=== PATIENT | male | born 1965 | race Hispanic/Latino ===

== ENCOUNTER 2018-05-08 06:44 | Emergency (ER) | payer SELFPAY ==
[~2018-05-08 06:44] MED LIST: ALBU90AE IH; AMLO5TAB2 PO; DILT360C30 PO; ESOM20CA34 PO; LISI40TA4 PO; MONT10TA21 PO; POTASSIUM PO; SERT20OR PO
[2018-05-08] MEDS ORDERED: HYDRALAZINE HCL 25 MG TABLET ONE (06:56)
== END 2018-05-08 07:44 | disposition home or self-care (01) ==
LOC: EDH 06:44
DX: I10 Essential (primary) hypertension (principal); J45.909 Unspecified asthma, uncomplicated; I25.10 Atherosclerotic heart disease of native coronary artery without angina pectoris; Z88.0 Allergy status to penicillin
CPT/HCPCS: 93005

== ENCOUNTER 2020-07-20 20:53 | Emergency (ER) | payer MEDICAID ==
[~2020-07-20 20:53] MED LIST changes: -AMLO5TAB2 PO; +AMLO5TAB9 PO; -DILT360C30 PO; +DILT360C38 PO
[2020-07-20] MEDS ORDERED: LABETALOL 20 MG/4 ML DISP.SYRIN IV ONE (21:30)
[2020-07-20 21:34] LABS: BASOPHILS % (AUTO) 0.4 % (0.0-5.0); EOSINOPHILS % (AUTO) 0.2 % (0.0-8.0); HEMATOCRIT 43.2 % (42-54); LYMPHOCYTES % (AUTO) 19.8 % (21.0-51.0); MEAN CORPUSCULAR HEMOGLOBIN 29.9 pg (27.0-33.0); MEAN CORPUSCULAR HGB CONC 33.8 g/dL (32.0-36.0); MEAN CORPUSCULAR VOLUME 88.5 fL (79-99); MONOCYTES % (AUTO) 5.7 % (3.0-13.0); NEUTROPHILS % (AUTO) 73.5 % (40.0-77.0); PLATELET COUNT (AUTO) 437 K/uL (130-400); RED BLOOD CELL COUNT(AUTO) 4.88 MIL/uL (4.50-6.20); RED CELL DISTRIBUTION WIDTH 12.6 % (11.0-15.5); WHITE BLOOD COUNT (AUTO) 16.6 K/uL (4.8-10.8)
[2020-07-20 21:42] LABS: AMPHET/METH SCREEN,URINE NEGATIVE (NEGATIVE); BARBITURATE SCREEN, URINE NEGATIVE (NEGATIVE); BENZODIAZEPINES SCREEN,URINE NEGATIVE (NEGATIVE); CANNABINOID SCREEN,URINE NEGATIVE (NEGATIVE); COCAINE SCREEN,URINE NEGATIVE (NEGATIVE); OPIATE SCREEN,URINE NEGATIVE (NEGATIVE); PHENCYCLIDINE SCREEN,URINE NEGATIVE (NEGATIVE)
[2020-07-20 21:44] LABS: CREATININE 1.1 mg/dL (0.5-1.5); POTASSIUM 3.3 mmol/L (3.5-5.1)
[2020-07-20 21:46] LABS: PARTIAL THROMBOPLASTIN TIME 27.8 SEC (26.3-35.5); PROTHROMBIN TIME 10.8 SEC (9.6-11.6)
[2020-07-20 21:48] LABS: ALBUMIN 3.9 g/dL (3.5-5.0); BILIRUBIN,TOTAL 0.6 mg/dL (0.2-1.0); TOTAL PROTEIN, SERUM 7.8 g/dL (6.0-8.3)
[2020-07-20 22:31] LABS: APPEARANCE,URINE Clear (CLEAR); BILIRUBIN,URINE Negative (NEGATIVE); COLOR,URINE Yellow (YELLOW); GLUCOSE, URINE (UA) TRACE mg/dL (NEGATIVE); KETONES,URINE Negative (NEGATIVE); LEUKOCYTE ESTERASE ,URINE Negative (NEGATIVE); NITRATE,URINE Negative (NEGATIVE); OCCULT BLOOD,URINE Negative (NEGATIVE); PH,URINE 8.5 (5.0-8.0); PROTEIN,URINE Negative (NEGATIVE)
[2020-07-20] MEDS ORDERED: POTASSIUM CHLORIDE 20 MEQ ERTAB PO ONE (23:37)
== END 2020-07-21 00:07 | disposition home or self-care (01) ==
LOC: EDH 20:53
DX: I10 Essential (primary) hypertension (principal); D72.829 Elevated white blood cell count, unspecified; E87.6 Hypokalemia; I25.10 Atherosclerotic heart disease of native coronary artery without angina pectoris; J45.909 Unspecified asthma, uncomplicated; Z88.0 Allergy status to penicillin
CPT/HCPCS: 36415; 71046; 80053; 80305; 81003; 84484; 85025; 85610; 85730; 93005; 96374

== ENCOUNTER 2022-05-11 23:01 | Emergency (ER) | payer MEDICAID ==
[~2022-05-11] VITALS: Ht 167.6 cm; Wt 103.0 kg
[~2022-05-11 23:01] MED LIST changes: +AMLO-257 PO; -AMLO5TAB9 PO; -LISI40TA4 PO; +LISI40TA9 PO
[2022-05-11] MEDS ORDERED: ACYC-138 PO (23:30)
[2022-05-11] MEDS ORDERED: ACETAMINOPHEN WITH CODEINE 1 TAB TAB PO ONE (23:30)
[2022-05-11] MEDS ORDERED: ACYCLOVIR 800 MG TABLET PO ONE (23:30)
[2022-05-11] MEDS ORDERED: IBUP-2070 PO (23:30)
[2022-05-11] MEDS ORDERED: IBUPROFEN 600 MG TABLET PO ONE (23:30)
[2022-05-11] MEDS ORDERED: ACET-2079 PO (23:30)
[2022-05-11] MEDS ORDERED: HYDROCODONE/ACETAMINOPHEN 10/325 MG TAB PO ONE (23:30)
[2022-05-11] MEDS ORDERED: LIDOCAINE/PRILOCAINE CREAM 5GM TUBE TP SCH (23:30)
[2022-05-11] MEDS ORDERED: ACYCLOVIR 200 MG CAPSULE ONE (23:37)
[2022-05-11 23:43] VITALS: BP 142/84
== END 2022-05-11 23:47 | disposition home or self-care (01) ==
LOC: EDH 23:01
DX: B02.9 Zoster without complications (principal); I10 Essential (primary) hypertension; E11.9 Type 2 diabetes mellitus without complications; J45.909 Unspecified asthma, uncomplicated; Z79.899 Other long term (current) drug therapy

== ENCOUNTER 2025-07-14 21:27 | Emergency (ER) | payer BC, MEDICAID ==
[~2025-07-14] VITALS: Ht 167.6 cm; Wt 98.9 kg
[~2025-07-14 21:27] MED LIST changes: +ACET-2079 PO; +ACYC-138 PO; -DILT360C38 PO; +DILT360C52 PO; +IBUP-1492 PO; +LISI40TA15 PO; -LISI40TA9 PO; +MONT-47 PO; -MONT10TA21 PO; -SERT20OR PO; +SERT20OR13 PO
--- NOTE | 2025-07-14 21:41 | NUR ---
SEPSIS ALERT CALLED OVERHEAD TO ROOM 2; PT WITH TEMP OF 102.9, PULSE OF 102
[2025-07-14 21:51] LABS: APPEARANCE,URINE CLEAR (CLEAR); GLUCOSE, URINE (UA) 70 mg/dL (NEGATIVE); LEUKOCYTE ESTERASE ,URINE NEGATIVE Leu/uL (NEGATIVE); NITRATE,URINE NEGATIVE (NEGATIVE); OCCULT BLOOD,URINE +- (TRACE) (NEGATIVE)
[2025-07-14 21:52] LABS: ADD UA MICROSCOPIC YES
[2025-07-14 21:55] LABS: SQUAMOUS EPITHELIAL CELL,UR RARE /HPF (0-2)
[2025-07-14 22:07] LABS: IMMATURE GRANULOCYTE ABSOLUTE 0.04 K/uL (0-1); NUCLEATED RED BLOOD CELLS 0.0 % (0.0-0.19); PLATELET COUNT (AUTO) 268 K/uL (130-400); RED BLOOD CELL COUNT(AUTO) 4.60 MIL/uL (4.50-6.20); RED CELL DISTRIBUTION WIDTH 12.4 % (11.0-15.5); WHITE BLOOD COUNT (AUTO) 11.2 K/uL (4.8-10.8)
[2025-07-14 22:16] LABS: RAPID GROUP A STREP negative (NEGATIVE); SARS-CoV-2, RNA, NAAT NEGATIVE SARS CoV-2 (NEGATIVE)
[2025-07-14] MEDS: LACTATED RINGERS 1000ML IV STA (22:19)
[2025-07-14 22:22] LABS: INFLUENZA TYPE A Negative For Type A (NEGATIVE); INFLUENZA TYPE B Negative For Type B (NEGATIVE)
[2025-07-14 22:22] LABS: CREATININE 0.9 mg/dL (0.5-1.3); GLOMERULAR FILTR. RATE CALC 98.0 mL/min (>90); GLUCOSE,RANDOM 157.0 mg/dL (70-105); SODIUM SERUM 133.0 mmol/L (136-145); UREA NITROGEN, BLOOD 12.0 mg/dL (7-18)
[2025-07-14 22:23] LABS: CREATINE KINASE, TOTAL 77.0 U/L (21-232)
--- NOTE | 2025-07-14 22:27 | ERN ---
General Chief Complaint: Fever Stated Complaint: C/O FEVER ONSET MONDAY Time Seen by MD: 21:33 Source: patient History of Present Illness Initial Comments Patient a 60-year-old male with diabetes type 2 and hypertension comes with a fever for five days. Surprisingly no other symptoms of an infection. He is complaining of left-sided pain that feels like pins and needles and he wonders if it is the beginning of a shingles outbreak as he has had shingles before. Timing/Duration: 1 week Associated Symptoms: cough Allergies: Coded Allergies: Penicillins (Unverified Allergy, Unknown, NAUSEA/VOMITING, 06/09/15) Home Meds Active Scripts Acetaminophen with Codeine (Acetaminophen-Cod #3 Tablet) 1 Each Tablet, 1 TAB PO Q6H PRN for PAIN LEVEL 7 TO 10, #15 TAB Prov:JASMYN ELLIS MD 05/11/22 Ibuprofen (Ibuprofen) 600 Mg Tablet, 600 MG PO Q6H PRN for PAIN, #30 TAB Prov:JASMYN ELLIS MD 05/11/22 Acyclovir (Acyclovir) 800 Mg Tablet, 1 TAB PO 5XDAY for 7 Days, #35 TAB 0 Refills Prov:JASMYN ELLIS MD 05/11/22 Amlodipine Besylate (Amlodipine Besylate) 5 Mg Tablet, 5 MG PO DAILY, #30 TAB Prov:MASSIMO MEADOWS MD 08/13/17 Lisinopril (Lisinopril) 40 Mg Tablet, 40 MG PO DAILY, #30 TAB Prov:MASSIMO MEADOWS MD 08/13/17 Reported Medications Albuterol Sulfate (Proair Respiclick) 90 Mcg Aer.pow.ba, 90 MCG IH BID PRN for SHORTNESS OF BREATH 08/12/17 Sertraline HCl (Zoloft) 20 Mg/1 Ml Oral.conc, 10 MG PO AD PRN for ANXIETY/AGITATION, ML 08/12/17 Montelukast Sodium (Singulair) 10 Mg Tablet, 10 MG PO DAILY, TAB 08/12/17 [Potassium] No Conflict Check, 40 MEQ PO BID 06/10/15 Esomeprazole Magnesium (Nexium 24Hr) 20 Mg Capsule.dr, 40 MG PO DAILY, CAP 06/09/15 Diltiazem HCl (Diltiazem 24Hr ER) 360 Mg Cap.er.24h, 360 MG PO DAILY, CAPSULE. 06/09/15 Past Medical History Past Medical History: Diabetes-Type II, Hypertension Past Surgical History: Other Social History Social History: Negative, Lives with family Constitutional: (+) fever EENTM: (-) eye pain, (-) blurred vision, (-) tearing, (-) double vision, (-) ear pain, (-) ear discharge, (-) nose pain, (-) nose congestion, (-) throat pain, (-) Throat swelling, (-) mouth pain, (-) tooth pain, (-) mouth swelling, (-) other documentation Respiratory: (-) cough, (-) orthopnea, (-) short of breath, (-) stridor, (-) wheezing, (-) other documentation Cardiovascular: (-) chest pain, (-) edema, (-) palpitations, (-) syncope, (-) dyspnea on exertion, (-) other documentation Gastrointestinal/Abdominal: (-) nausea, (-) vomiting, (-) diarrhea, (-) abdominal pain, (-) abdominal distention, (-) constipation, (-) rectal bleeding, (-) dark stool/melena, (-) other documentation Musculoskeletal: (+) Flank Pain Physical Exam General Appearance: (+) mild distress Orientation: (+) alert, (+) oriented x 3 Head/Face Trauma: No Eye: bilateral eye normal inspection, bilateral eye PERRL, bilateral eye EOMI Ear, Nose, Throat: (+) hearing grossly normal, (+) normal ENT inspection, (+) moist mucous membraine Neck: (+) normal inspection, (+) supple, (+) full range of motion Respiratory: (+) chest non-tender, (+) lungs clear Heart: (+) regular, (+) no gallop, (+) murmur Vascular: (+) no edema, (+) normal peripheral pulse Gastrointestinal: (+) soft, (+) non-tender, (+) bowel sound present Back Comment No rash present Skin Comment No rashes present Results Laboratory and Microbiology Lab and Micro Result Laboratory Tests Test 07/14/25 21:37 07/14/25 21:53 07/14/25 21:55 Urine Color YELLOW (YELLOW) Urine Appearance CLEAR (CLEAR) Urine pH 6.0 (5.0-8.0) Urine Specific [place] 1.025 (1.001-1.031) Urine Protein 70 mg/dL (NEGATIVE) H Urine Glucose (UA) 70 mg/dL (NEGATIVE) H Urine Ketones 5 mg/dL (NEGATIVE) H Urine Occult Blood +- (TRACE) (NEGATIVE) H Urine Nitrate NEGATIVE (NEGATIVE) Urine Bilirubin NEGATIVE mg/dL (NEGATIVE) Urine Urobilinogen 3 mg/dL (0.2-1.0) H Urine Leukocyte Esterase NEGATIVE [place]/uL Urine RBC 6-10 /HPF (0-1) H Urine WBC 2-5 /HPF (0-1) H Urine Squamous Epithelial Cells RARE /HPF (0-2) Urine Bacteria None /HPF (None Seen) White Blood Count 11.2 K/uL (4.8-10.8) H Red Blood Count 4.60 MIL/uL (4.50-6.20) Hemoglobin 13.9 g/dL (14.0-18.0) L Hematocrit 39.9 % (42-54) L Mean Corpuscular Volume 86.7 fL (79-99) Mean Corpuscular Hemoglobin 30.2 pg (27.0-33.0) Mean Corpuscular Hemoglobin Concent 34.8 g/dL (32.0-36.0) Red Cell Distribution Width 12.4 % (11.0-15.5) Platelet Count 268 K/uL (130-400) Mean Platelet Volume 10.0 fL (7.5-10.5) Immature Granulocyte % (Auto) 0.4 % (0-1) Neutrophils (%) (Auto) 79.0 % (40.0-77.0) H Lymphocytes (%) (Auto) 12.6 % (21.0-51.0) L Monocytes (%) (Auto) 7.3 % (3.0-13.0) Eosinophils (%) (Auto) 0.3 % (0.0-8.0) Basophils (%) (Auto) 0.4 % (0.0-5.0) Neutrophils # (Auto) 8.8 K/uL (1.8-7.7) H Lymphocytes # (Auto) 1.4 K/uL (1.0-4.8) Monocytes # (Auto) 0.8 K/uL (0.1-1.0) Eosinophils # (Auto) 0.03 K/uL (0.00-0.70) Basophils # (Auto) 0.05 K/uL (0.00-0.20) Absolute Immature Granulocyte (auto 0.04 K/uL (0-1) Nucleated Red Blood Cells 0.0 % (0.0-0.19) Sodium Level 133 mmol/L (136-145) L Potassium Level 2.9 mmol/L (3.5-5.1) *L Chloride Level 98 mmol/L (101-111) L Carbon Dioxide Level 24 mmol/L (21-32) Blood Urea Nitrogen 12 mg/dL (7-18) Creatinine 0.9 mg/dL (0.5-1.3) Glomerular Filtration Rate Calc 98 mL/min (>90) Random Glucose 157 mg/dL (70-105) H Lactic Acid Level 1.1 mmol/L (0.8-2.5) Total Calcium 9.1 mg/dL (8.5-10.1) Total Creatine Kinase 77 U/L (21-232) # Troponin I High Sensitivity 6 ng/L (4-75) Influenza Type A Antigen Negative For Type A Influenza Type B Antigen Negative For Type B SARS-CoV-2, RNA, NAAT NEGATIVE SARS CoV-2 Group A Streptococcus Rapid negative (NEGATIVE) MDM MDM: Differential diagnosis: Fever of unknown origin, UTI, shingles, lymphoma, pneumonia, Rationale: Tests considered and ordered secondary to shared decision making include: Previous outside records reviewed: Old ER visits. Risk of complication and/or morbidity or mortality of patient management: None Medications-Per medication reconciliation Need for hospitalization: Patient does meet criteria for hospitalization. Need for emergency major/minor surgery: No There are no social concerns with this patient. Prescription drug management Prescriptions will include symptomatic care Patient's prior external medical records from other ER visits were reviewed by me as indicated. Prior testing and results from previous visits were reviewed. Prior tests were taken into account with medical decision making and resource utilization, independent historian/historians were used to obtain complete medical history. I independently interpreted the test that were performed, results were reviewed by me and considered findings on radiology if ordered. Laboratory studies radiology studies did not reveal a and obvious cause of patient's symptoms. Chest x-ray is negative for pneumonia. Nasal swabs n egative for COVID strep and influenza. Patient's chemistry panel was positive only for mild hypokalemia. CBC showed a small elevation in his white blood cell count. The only thing significant was ketones in his urine suggesting dehydration. Patient feels better with the fluids he received. He still has that tingling feeling in his left flank but with no rash it is hard for me to justify starting oral antivirals. ED Course Orders Procedure Category Date Status Time Iv Insertion CPOE 07/14/25 Transmitted 21:42 Pulse Ox(Continuous) RT 07/14/25 Transmitted 21:42 Vital Signs Per CPOE 07/14/25 Transmitted Routine 21:42 12 Lead Ekg Tracing- EKG 07/14/25 Logged Technical 21:42 Cbc With Differential LAB 07/14/25 Complete 21:42 Blood Cult KATINA 07/14/25 In Process 21:42 Urinalysis Profile LAB 07/14/25 Complete 21:42 Culture Urine KATINA 07/14/25 In Process 21:42 Creatine Kinase, Total LAB 07/14/25 Complete 21:42 Troponin I High LAB 07/14/25 Complete Sensitivity 21:42 Lactic Acid LAB 07/14/25 Complete 21:42 Basic Metabolic Panel LAB 07/14/25 Complete 21:42 Covid Rna Naat LAB 07/14/25 Complete 21:53 Influenza Type A & B, LAB 07/14/25 Complete Rapid 21:53 Rapid (Group A Strep) LAB 07/14/25 Complete 21:53 Lactated Ringers PHA 07/14/25 Complete 1000ml (Lactated 22:00 Chest 1vw RAD 07/14/25 Resulted 22:00 Potassium Bicarb/Cit PHA 07/14/25 Complete Ac 25meq (K-Lyte Ta 22:30 Acetaminophen 500mg PHA 07/14/25 Complete Tab (Tylenol 500mg T 23:00 Current Medications Medications (Trade) Dose Ordered Sig/Tiffany Route PRN Reason Start Time Stop Time Status Last Admin Dose Admin Acetaminophen (TYLenol 500MG TAB) 1,000 mg ONCE ONCE PO 07/14/25 23:00 07/14/25 23:01 DC 07/14/25 22:42 Lactated Ringer's (Lactated Ringers 1000ml) 1,000 ml BOLUS STAT IV 07/14/25 22:00 07/14/25 22:02 DC 07/14/25 22:19 Potassium Bicarbonate (K-Lyte Tablet Eff 25 Meq Tablet.eff) 50 meq ONCE ONCE PO 07/14/25 22:30 07/14/25 22:31 DC 07/14/25 22:42 Vital Signs Date Time Temp Pulse Resp B/P (MAP) Pulse Ox O2 Delivery O2 Flow Rate FiO2 07/14/25 23:23 99.0 96 18 154/76 97 Room Air* 0 21 07/14/25 22:42 102.0 07/14/25 22:02 102.9 97 18 169/76 98 Room Air* 0 21 07/14/25 21:28 102.9 24 20 176/86 95 Room Air DX & DISP Disposition: Discharge Departure Impression: Primary Impression: Dehydration Additional Impression: Hypokalemia Condition: Stable Additional Instructions: I am not sure about the cause of your isolated fever. It could be from overheating or dehydration. Consistent with this is the fact that you felt bet ter with the IV fluids and that you had ketones in your urine. I recommend drinking enough water every day so that your urine runs clear at least once a day. You do have a slight elevation in your white blood cell count. Your urine is negative for infection. Your chest x-ray is negative for pneumonia. Nasal swabs are negative for COVID influenza or strep throat. Over heating can cause a slight elevation in your white blood cell count. The tingling that you feel in your left flank could be the beginning of a shingles eruption but without a rash I can not prescribe any oral antiviral therapy or antiviral ointments. Please follow-up with her primary care physician if your fever continues in his especially if it occurs mainly at night. Referrals: MARC HOWELL (PCP) LETI MCKENZIE MD Jul 14, 2025 22:27
--- NOTE | 2025-07-14 22:42 | HMCIMG ---
EXAM: CR Chest, 1 View. CLINICAL HISTORY: fever COMPARISON: None provided. FINDINGS: LUNGS: There is no mass, infiltrate, or acute pulmonary abnormality. PLEURAL SPACES: No pleural effusion or pneumothorax. MEDIASTINUM: The cardiomediastinal silhouette is within normal limits. BONES: No acute osseous abnormality. IMPRESSION: No acute cardiopulmonary pathology is evident. /[place]
[2025-07-14 23:22] VITALS: TEMP 99
[2025-07-14 23:23] VITALS: BP 154/76; PULSE 96; RESP 18; TEMP 99; O2SAT 97
--- NOTE | 2025-07-15 05:18 | EKG ---
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
== END 2025-07-15 00:06 | disposition home or self-care (01) ==
LOC: EDH 21:27
DX: E86.0 Dehydration (principal); E87.6 Hypokalemia; E11.9 Type 2 diabetes mellitus without complications; I10 Essential (primary) hypertension; Z79.899 Other long term (current) drug therapy; Z88.0 Allergy status to penicillin; Z20.822 Contact with and (suspected) exposure to COVID-19
CPT/HCPCS: 99284; 71045; 87635; 82550; 84484; 80048; 85025; 87040 ×2; 87086; 87880; 87804 ×2; 83605; 81001; 36415; 93005; J7120